=== PATIENT | male | born 1955 | race Asian ===

== ENCOUNTER 2017-08-08 15:57 | Emergency (ER) | payer OTHER ==
[~2017-08-08] VITALS: Ht 172.7 cm; Wt 82.7 kg
[2017-08-08 17:55] VITALS: BP 123/86
== END 2017-08-08 17:53 | disposition home or self-care (01) ==
LOC: ED 15:57
DX: J02.8 Acute pharyngitis due to other specified organisms (principal); K21.9 Gastro-esophageal reflux disease without esophagitis; E78.00 Pure hypercholesterolemia, unspecified; Z79.01 Long term (current) use of anticoagulants; Z79.899 Other long term (current) drug therapy; Z88.0 Allergy status to penicillin